=== PATIENT | male | born 1985 | race Hispanic/Latino ===

== ENCOUNTER 2017-08-18 19:09 | Emergency (ER) | payer SELFPAY ==
--- NOTE | 2017-08-18 19:51 | C.PDOC ---
Time Seen by Provider: 08/18/17 19:50 Chief Complaint (Nursing): Substance Abuse Past Medical History Vital Signs: Last Vital Signs Temp 98.8 F 08/18/17 19:26 Pulse 74 08/18/17 19:26 Resp 16 08/18/17 19:26 BP 105/57 L 08/18/17 19:26 Pulse Ox 99 08/18/17 19:26 - Social History Hx Alcohol Use: No Hx Substance Use: Yes - Immunization History Hx Influenza Vaccination: No Hx Pneumococcal Vaccination: No ED Course And Treatment O2 Sat by Pulse Oximetry: 99 Disposition Counseled Patient/Family Regarding: Studies Performed, Diagnosis - Disposition Disposition Time: 19:51
--- NOTE | 2017-08-18 23:39 | C.PDOC ---
History Of Present Illness Patient presents to the ER requesting detox from opiates and heroin. Patient is aware that there are no beds available but notes he is homeless and is requesting a place to spend the night. Denies physical complaints at this time. Time Seen by Provider: 08/18/17 19:50 Chief Complaint (Nursing): Substance Abuse History Per: Patient History/Exam Limitations: no limitations Onset/Duration Of Symptoms: Days Current Symptoms Are (Timing): Gone Severity: None Pain Scale Rating Of: 0 Recent travel outside of the [place]: No Past Medical History Reviewed: Historical Data, Nursing Documentation, Vital Signs Vital Signs: Last Vital Signs Temp 98.5 F 08/19/17 03:07 Pulse 59 L 08/19/17 03:07 Resp 18 08/19/17 03:07 BP 110/70 08/19/17 03:07 Pulse Ox 97 08/19/17 03:07 Family History: States: No Known Family Hx - Social History Hx Alcohol Use: No Hx Substance Use: Yes - Immunization History Hx Influenza Vaccination: No Hx Pneumococcal Vaccination: No Review Of Systems Constitutional: Negative for: Fever, Chills Gastrointestinal: Negative for: Nausea, Vomiting, Diarrhea Physical Exam - Physical Exam Appears: Non-toxic, No Acute Distress Skin: Warm, Dry Head: Normacephalic Oral Mucosa: Moist Chest: Symmetrical, No Tenderness Cardiovascular: Rhythm Regular Respiratory: No Rales, No Rhonchi, No Wheezing Gastrointestinal/Abdominal: Soft, No Tenderness Neurological/Psych: Oriented x3 ED Course And Treatment O2 Sat by Pulse Oximetry: 99 (Room air) Pulse Ox Interpretation: Normal Reevaluation Time: 05:29 Reassessment Condition: Improved Disposition Counseled Patient/Family Regarding: Studies Performed, Diagnosis, Need For Followup - Disposition Referrals: [facility] [Outside] Disposition: HOME/ ROUTINE Disposition Time: 05:29 Condition: FAIR Forms: [facility] (Bahamian), General Discharge Instructions - Clinical Impression Clinical Impression: Drug abuse, Drug dependence - Scribe Statement The provider has reviewed the documentation as recorded by the Scribangy Chen All medical record entries made by the Scribe were at my direction and personally dictated by me. I have reviewed the chart and agree that the record accurately reflects my personal performance of the history, physical exam, medical decision making, and the department course for this patient. I have also personally directed, reviewed, and agree with the discharge instructions and disposition.
[2017-08-19 03:08] VITALS: TEMP 98.5
[2017-08-19 05:44] VITALS: BP 125/75; PULSE 78; RESP 22; O2SAT 98
== END 2017-08-19 05:58 | disposition home or self-care (01) ==
LOC: C.ER 19:09
DX: F11.20 Opioid dependence, uncomplicated (principal)

== ENCOUNTER 2018-02-11 14:04 | Emergency (ER) | payer SELFPAY ==
--- NOTE | 2018-02-11 14:46 | C.PDOC ---
History Of Present Illness 33 yo male, hx of psych, presetns with si. states he wants to "Steal gun and shoot himself." also c/o of b/l foot pain. pt known homeless. no fevers, no trauma no other complaints Time Seen by Provider: 02/11/18 14:43 Chief Complaint (Nursing): Psychiatric Evaluation Past Medical History Reviewed: Historical Data, Nursing Documentation, Vital Signs Vital Signs: Last Vital Signs Temp 98.6 F 02/11/18 21:37 Pulse 85 02/11/18 21:37 Resp 16 02/11/18 21:37 BP 114/52 L 02/11/18 21:37 Pulse Ox 100 02/12/18 13:10 Family History: States: Unknown Family Hx - Social History Hx Alcohol Use: No Hx Substance Use: Yes - Immunization History Hx Tetanus Toxoid Vaccination: No Hx Influenza Vaccination: No Hx Pneumococcal Vaccination: No Review Of Systems Psych: Positive for: Suicidal ideation Physical Exam - Physical Exam Appears: Well, No Acute Distress Skin: Normal Color, Warm, Dry Eye(s): bilateral: Normal Inspection, PERRL, EOMI Nose: Normal Throat: Normal Neck: Normal Cardiovascular: Rhythm Regular Respiratory: Normal Breath Sounds Gastrointestinal/Abdominal: Normal Exam Back: Normal Inspection Extremity: Normal ROM, Swelling (b/l chronic appearing swelling) ED Course And Treatment - Laboratory Results Result Diagrams: 02/11/18 16:00 02/11/18 16:00 O2 Sat by Pulse Oximetry: 100 (RA) Pulse Ox Interpretation: Normal - Radiology CXR: Interpreted by Me, Viewed By Me CXR Interpretation: Yes: No Acute Disease. No: Infiltrates Medical Decision Making Medical Decision Makin:52 pt with si. medical clearance pending also c/o of bl foot pain with noted mild swelling, chronic appearing changes no trauma no indication for imaging. pt sleepin evens arrival in [facility]. Patient is medically cleared. ekg nsr [address] twave changes. accepted for transfer to [facility] Disposition - Disposition Disposition: HOSPITALIZED Disposition Time: 21:00 Condition: STABLE Forms: [facility] (Iraqi) - Clinical Impression Clinical Impression: Moderate major depression, single episode Decision To Admit - Pt Status Changed To: Hospital Disposition Of: Inpatient - Admit Certification Admit to Inpatient:: After my assessment, the patient will require hospitalization for at least two midnights. This is because of the severity of symptoms shown, intensity of services needed, and/or the medical risk in this patient being treated as an outpatient. - InPatient: Physician Admission Certification: I certify that this patient requires 2 or more midnights of care for the following reason:: needs pysch - . Bed Request Type: Psychiatry Admitting Physician: Hira Canales Patient Diagnosis: Moderate major depression, single episode
[2018-02-11 16:11] LABS: BASO % 0.4 % (0.0-2.0); EOS # 0.2 K/uL (0.0-0.7); EOS % 2.6 % (0.0-4.0); HEMOGLOBIN 10.7 g/dL (12.0-18.0); LYMPH # 1.3 K/uL (1.0-4.3); LYMPH % 18.3 % (20.0-40.0); MEAN CELL VOLUME 74.9 fL (80.0-94.0); MEAN CORPUSCULAR HEMOGLOBIN 23.9 pg (27.0-31.0); MEAN CORPUSCULAR HGB CONC 31.9 g/dL (33.0-37.0); MEAN PLATELET VOLUME 6.4 fL (7.2-11.7); MONO # 0.5 K/uL (0.0-0.8); MONO % 7.6 % (0.0-10.0); NEUT % 71.1 % (50.0-75.0); NRBC % 0.1 % (0.0-2.0); RBC 4.47 Mil/uL (4.40-5.90); RED CELL DISTRIBUTION WIDTH 16.1 % (11.5-14.5)
[2018-02-11 16:16] LABS: ALB/GLOB RATIO 1.2 (1.0-2.1); ALT/SGPT 65 U/L (21-72); AST/SGOT 48 U/L (17-59); BLOOD UREA NITROGEN 9 mg/dL (9-20); CALCIUM 8.7 mg/dl (8.6-10.4); GFR AFRICAN-AMERICAN > 60; GFR NON-AFRICAN AMERICAN > 60
[2018-02-11 16:22] LABS: ACETAMINOPHEN < 10.0 ug/mL (10.0-30.0); SALICYLATE < 1.0 [, mg/dL 1]
[2018-02-11 17:58] LABS: SQUAMOUS EPITHIAL < 1 /hpf (0-5); URINE BILIRUBIN NEGATIVE (NEGATIVE); URINE BLOOD NEGATIVE (NEGATIVE); URINE CLARITY Clear (Clear); URINE COLOR Yellow (YELLOW); URINE GLUCOSE (UA) NORMAL (Normal); URINE LEUKOCYTE ESTERASE NEG Leu/uL (Negative); URINE PROTEIN NEGATIVE (NEGATIVE); URINE UROBILINOGEN NORMAL mg/dL (0.2-1.0)
[2018-02-11 18:15] LABS: BARBITURATES, UR NEGATIVE (NEGATIVE); BENZODIAZEPINES, UR NEGATIVE (NEGATIVE); OPIATES, UR POSITIVE (NEGATIVE); PHENCYCLIDINE, UR NEGATIVE (NEGATIVE)
[2018-02-11 20:22] VITALS: RESP 16
[2018-02-11 21:38] VITALS: BP 114/52; PULSE 85; TEMP 98.6
--- NOTE | 2018-02-12 08:14 | RAD ---
HISTORY: pysch COMPARISON: No prior. TECHNIQUE: Chest PA and lateral FINDINGS: LUNGS: No acute infiltrates. Few tiny calcifications scattered about the upper lobe may be present. Questionable small bleb right lung apex. PLEURA: No significant pleural effusion identified. No pneumothorax apparent. CARDIOVASCULAR: Normal. OSSEOUS STRUCTURES: No significant abnormalities. VISUALIZED UPPER ABDOMEN: Normal. OTHER FINDINGS: None. IMPRESSION: No acute infiltrates. Suspect few tiny scattered calcification left upper lung field. Questionable small bleb right lung apex.
[2018-02-12 13:10] VITALS: O2SAT 100
== END 2018-02-11 22:17 | disposition short-term general hospital (02) ==
LOC: C.ER 14:04 → UNDOADMIN 18:57 → C.9E 18:57 → C.ER 22:17
DX: F32.1 Major depressive disorder, single episode, moderate (principal); Z59.0 Homelessness
CPT/HCPCS: 71046; 80053; 81001; 85025; 99285; G0480